=== PATIENT | male | born 1970 | race Caucasian/White ===

== ENCOUNTER 2017-03-28 07:58 | Day surgery (SDC) | payer OTHER ==
[2017-03-27 23:06] VITALS: BMI 35.2
[~2017-03-28 07:58] MED LIST: LACTATED RINGERS 1,000 ML IV ONE; MORPHINE SULFATE 5 MG/ML SYRINGE IV PRN; Pre Op ABX Message 1 EACH MISC MISCELLANE ONE
[2017-03-28] MEDS: OXYMETAZOLINE 0.05% NASL SPRAY 1 SPRAY BOTTLE EA NOSTRIL ONE ×5 (08:25→08:48)
[2017-03-28 08:28] LABS: Glucose,Whole Blood 108 mg/dL (75-99)
[2017-03-28] MEDS ORDERED: ONDANSETRON 4 MG/2 ML VIAL IVP ONE (08:30)
[2017-03-28] MEDS ORDERED: LIDOCAINE 1% 20 ML VIAL (10MG/ML) FOR IV START INTRADERMA ONE (08:30)
[2017-03-28] MEDS ORDERED: DEXAMETHASONE SOD PHOS (MDV) 100 MG/10 ML VIAL IV ONE (08:31)
[2017-03-28] MEDS ORDERED: SCOPOLAMINE 1.5MG/72HR PATCH TRANSDERM ONE (08:31)
[2017-03-28] MEDS ORDERED: FAMOTIDINE 20 MG/2 ML VIAL IV ONE (08:34)
[2017-03-28] MEDS ORDERED: ROCURONIUM BROMIDE 10 MG/ML 10 ML VIAL IV ONE (09:43)
[2017-03-28] MEDS ORDERED: MIDAZOLAM 2 MG/2 ML VIAL ONE (09:43)
[2017-03-28] MEDS ORDERED: NEOSTIGMINE 1 MG/ML 10 ML VIAL ONE (09:43)
[2017-03-28] MEDS ORDERED: LIDOCAINE 1% INJ 10MG/ML (20 ML MDV) ONE (09:43)
[2017-03-28] MEDS ORDERED: DEXAMETHASONE SOD PHOS (MDV) 100 MG/10 ML VIAL ONE (09:43)
[2017-03-28] MEDS ORDERED: SUCCINYLCHOLINE CHLORIDE VIAL 200 MG/10 ML VIAL IV ONE (09:43)
[2017-03-28] MEDS ORDERED: GLYCOPYRROLATE 0.2 MG/ML 2 ML VIAL ONE (09:43)
[2017-03-28] MEDS ORDERED: fentaNYL (PF) 50 MCG/ML 2 ML AMP ONE (09:43)
[2017-03-28] MEDS ORDERED: PROPOFOL 10 MG/ML 20 ML VIAL IV ONE (09:43)
[2017-03-28] MEDS: HYDROmorphone 1 MG/ML 1 ML SYRINGE IVP PRN ×2 (10:40→10:46)
--- NOTE | 2017-03-28 10:49 | P.OP ---
Date of Procedure: 03/28/17 Preoperative Diagnosis: Globus pharyngeus, throat pain, cough Postoperative Diagnosis: Same Procedure(s) Performed: Triple endoscopy and biopsy, endoscopic nasopharyngeal biopsy Anesthesia: PAULYA Surgeon: Ej Interiano Estimated Blood Loss (ml): 10 Pathology: other (Nasopharyngeal biopsy, bilateral base of tongue and lateral opharyngeal biopsy) Condition: stable Disposition: PACU Indications for Procedure: Patient presented to the office with a persistent globus pharyngeus with associated dysphagia and coughing. He drinks 2 to 42 liter bolus of dye a pop and smokes a pack a day for the last 20 years. Examination reveals some suspicious lymphoid enlargement of the nasopharynx and hypopharynx and base of tongue. Biopsy is warranted. Operative Findings: Patient had unusual lymphoid aggregate of the bilateral base of tongue and hypopharynx along with the nasopharyngeal area. Description of Procedure: This patient was taken to the operative room and placed in the supine position. A general inhalation anesthetic was administered to the patient by mask and subsequently intubated with a cuffed endotracheal tube by the department of anesthesia with a functioning IV line in place. The patient was monitored throughout the entire case by the department of anesthesia. A tooth guard was placed and a Jako laryngoscope was placed into the patient's mouth with care to avoid any trauma to the lips teeth gums or tongue. The tongue was depressed and the entire oropharynx and hypopharynx was evaluated including the lateral pharynx, piriform sinus, true and false cords postcricoid space etc. etc. There was some unusual swelling of lymphoid aggregates of the base of tongue and hypopharynx bilaterally and they were biopsied. We then entered the long with the use of a bronchoscope and all 12 segments of the lungs were evaluated there was no signs of any endobronchial lesions. After the bronchoscope was removed and esophagoscope was inserted and the entire length of the esophagus was evaluated from the upper to the lower esophageal sphincter. Complete examination occurred and the patient did well. We then utilized a 0 endoscope and inserted this into the patient's nose and evaluated the nasopharynx. There was a lymphoid aggregate seen in the nasopharynx which was biopsied. All instrumentation was removed the patient tolerated this well and follow-up will be in the office in 1 week.
--- NOTE | 2017-03-28 11:55 | P.OP ---
Date of Procedure: 03/28/17 Preoperative Diagnosis: Deviated nasal septum Bilateral inferior turbinate hypertrophy with obstruction Postoperative Diagnosis: Same Procedure(s) Performed: Bilateral outfracture compression and submucosal resection of the inferior turbinates Septoplasty Anesthesia: PAULYA Surgeon: Ej Interiano Estimated Blood Loss (ml): 5 Pathology: other Condition: stable Disposition: PACU Indications for Procedure: This patient has a persistent nasal obstruction secondary to deviated nasal septum and large obstructive inferior turbinates. We tried cortisone nasal sprays and other [id number] and prescription medications with no improvement. He was found have a septal deviation there was obstructive along with obstructive inferior turbinates and surgical correction was recommended. All risks, benefits, and alternative therapies were discussed in detail. Consent was obtained and all questions were answered. Operative Findings: Patient was found have a deviated nasal septum to the right with a large obstructive inferior turbinates Description of Procedure: : This patient was taken to the operative room and placed in the supine position. A general inhalation anesthetic was administered to the patient by the department of anesthesia with a functioning IV line in place. The patient was monitored throughout the entire case by the department of anesthesia. The eyes were taped shut for protection. The patient was placed in a slight reverse Trendelenburg position. The patient had previously utilize Afrin nasal spray preoperatively. The nose was evaluated and the septum lateral nasal wall and inferior turbinates were injected with lidocaine 1% with epinephrine 1 100, 000 bilaterally. Approximately 10 minutes were allowed wait for full vasoconstrictive effects to take place. At this point a caudal incision was made over the caudal portion of the left septum down to the mucoperichondrium. A mucoperichondrial flap was elevated on the left side and dissection was carried with use of tunnels posteriorly. We then made a crossover incision through the cartilage to the contralateral side and for the mucoperichondrial flap development was performed to the extent of visualization on the contralateral side. After the cartilage was freed with use of several crosshatching incisions and removal of some redundant strips of septal cartilage, the septum was straightened and placed back in the midline. The septum was sutured fixated to the ovarian groove. Excellent straightening occurred and the septum was visibly straight. Incision was closed with a 40 rapid Vicryl. We utilized a running nonlocking fashion for closure of the incision. A quilting stitch was used to reapproximate the septal flaps with use of a 40 rapid Vicryl. Intranasal splints were inserted and fixated at the end of the case. We utilized Montes nasal splints. There will be removed and the patient returns to the office. Attention was then paid to the inferior turbinates. The bilateral inferior turbinates were hypertrophic and obstructive. We entered the anterior portion of the inferior turbinates with use of a microdebrider. We remove bone and submucosal elements with use of a microdebrider bilaterally. The inferior turbinates underwent a submucosal resection with removal of submucosal tissue and bone. We obtained a much better and normal in size for breathing. The inferior turbinates were then outfractured and compressed with a [employer] nasal elevator. Excellent airway was obtained and was symmetric bilaterally. No bleeding was encountered.
[2017-03-28] MEDS ORDERED: Acetaminophen-Codeine 300-30mg TAB PO ONE (12:56)
[2017-03-28 16:29] VITALS: BP 124/81; PULSE 58; RESP 18; TEMP 96.9
--- NOTE | 2017-05-29 17:43 | OP ---
OPERATIVE REPORT DATE OF SERVICE: 03/28/2017. PREOPERATIVE DIAGNOSES: Nasopharyngeal mass, hypopharyngeal swelling, rule out mass, rule out malignancy, dysphagia, cough, globus pharyngeus, tobacco use. POSTOPERATIVE DIAGNOSES: Nasopharyngeal mass, hypopharyngeal swelling, rule out mass, rule out malignancy, dysphagia, cough, globus pharyngeus, tobacco use. OPERATIVE PROCEDURE: Triple endoscopy, i.e. panendoscopy, with biopsy removal of a left hypopharyngeal mass and nasopharyngeal mass with endoscopic examination and biopsy of the nasopharynx. BLOOD LOSS: 5 mL. PATHOLOGY: As above. CONDITION: Stable. DISPOSITION: PACU. INDICATIONS FOR PROCEDURE: This patient was having issues with his throat. He had a lump feeling in his throat, worse when he swallowed. He points to the left side of the larynx. He has pain when he swallows, difficulty when he swallows. He coughs. He has a 20 pack year history of smoking. Examination revealed an unusual swelling to the nasopharynx and hypopharynx and a biopsy was recommended. DESCRIPTION OF PROCEDURE: This patient was taken to the operating room, placed in the supine position. A general inhalation anesthetic was administered to the patient by mask and subsequently intubated with a cuffed endotracheal tube by the Department of Anesthesia. With a functioning IV line in place, the patient was monitored throughout the entire case by the Department of Anesthesia. The patient was intubated with a #5 [employer] Tube. A 0 degree Rutledge tari endoscope was inserted into the nose and into the nasopharynx, with use of biopsy forceps. This nasopharyngeal irregularity was biopsied and sent for permanent section. After the nasopharynx was biopsied, the tooth guard was placed onto the patient's upper teeth and the Jako laryngoscope was placed into the patient's mouth with care to avoid any trauma to the lips, teeth, gums and tongue. The mouth was opened. Tongue was depressed. The entire base of tongue, vallecula, epiglottis, true and false cords, lateral pharynx, hypopharynx, oropharynx, post cricoid space, etc. were examined. This was viewed under microscopic visualization with a Leica microscope. We biopsied the bilateral hypopharyngeal areas. There was an area on the right and the left that appeared to be suspicious. We removed this lymphoid type of aggregate swelling. The patient tolerated this well. We then inserted the bronchoscope and all 12 segments of the lungs were evaluated. In light of the patient's cough, there was no signs of and any endobronchial lesions. All 12 segments of the lungs were evaluated from the larynx to the terminal bronchi to the extent of visualization. The Olympus bronchoscope was removed and then we inserted an esophagoscope into the right piriform sinus. We visualized the esophagus from the lower to the upper esophageal sphincter and the entire length of the esophagus was visualized, again from the upper to the lower esophageal sphincters. No esophageal pathology was noted. All instrumentation was removed. The patient tolerated this well. Follow up will be in the office in 1 week for recheck. The patient is to contact me if any problems should arise. MMODL / IJN: [id number] /
== END 2017-03-28 12:55 | disposition home or self-care (01) ==
LOC: OR 07:58
PROVIDERS: ATTEND Otolaryngology
DX: J39.2 Other diseases of pharynx (principal); F45.8 Other somatoform disorders; R07.0 Pain in throat; R05 Cough; K21.9 Gastro-esophageal reflux disease without esophagitis; E78.00 Pure hypercholesterolemia, unspecified; R73.9 Hyperglycemia, unspecified; G47.33 Obstructive sleep apnea (adult) (pediatric); Z88.0 Allergy status to penicillin; F17.200 Nicotine dependence, unspecified, uncomplicated
CPT/HCPCS: 88305; 31576; 31622; 43200; 31237; J2250; J0330; J2710; J2405; J2001; J3010; J1170; J1100; J2704

== ENCOUNTER → 2021-01-03 | Outpatient (CLI) | payer OTHER | END | disposition home or self-care (01) | LOC: LABPAT 15:46 | PROVIDERS: ATTEND Surgery | DX: Z53.9 Procedure and treatment not carried out, unspecified reason (principal) ==